=== PATIENT | female | born 1965 | race Caucasian/White ===

== ENCOUNTER 2021-03-30 16:29 | Emergency (ER) | payer OTHER ==
[2021-03-30 17:15] LABS: HEMOGLOBIN 14.7 gm/dl (12.3-15.3); RED BLOOD COUNT 4.54 M/UL (4.00-5.10); WHITE BLOOD COUNT 5.3 K/UL (4.5-11.0)
[2021-03-30 17:40] LABS: BUN/CREATININE RATIO 17 (0-10)
== END 2021-03-30 18:55 | disposition home or self-care (01) ==
LOC: ER1 16:29
PROVIDERS: Physician Assistant Medical
DX: F41.9 Anxiety disorder, unspecified (principal); J44.9 Chronic obstructive pulmonary disease, unspecified; F17.210 Nicotine dependence, cigarettes, uncomplicated
CPT/HCPCS: 80053; 80307; 81001; 84439; 84443; 85025; 99283